=== PATIENT | female | born 1970 | race African-American/Black ===

== ENCOUNTER → 2024-01-04 16:22 | Outpatient (REF) | payer BC, SELFPAY | LOC: HWWDC 16:22 | PROVIDERS: ATTENDING PHYSICIAN Family Medicine | DX: Z12.31 Encounter for screening mammogram for malignant neoplasm of breast (principal) | CPT/HCPCS: 77063; 77067 ==

== ENCOUNTER → 2025-01-14 09:45 | Outpatient (REF) | payer BC, SELFPAY | LOC: WDC 09:45 | PROVIDERS: ATTENDING PHYSICIAN Obstetrics & Gynecology | DX: N60.12 Diffuse cystic mastopathy of left breast (principal); N63.22 Unspecified lump in the left breast, upper inner quadrant; N63.14 Unspecified lump in the right breast, lower inner quadrant | CPT/HCPCS: 76642; 77062; 77066 ==